=== PATIENT | male | born 1955 | race Caucasian/White ===

== ENCOUNTER → 2023-07-31 13:49 | Outpatient (REF) | payer OTHER, SELFPAY | LOC: RAD 13:49 | PROVIDERS: ATTENDING PHYSICIAN Student in an Organized Health Care Education/Training Program | DX: Z00.00 Encounter for general adult medical examination without abnormal findings (principal) | CPT/HCPCS: 76770 ==

== ENCOUNTER → 2025-02-04 13:55 | Outpatient (REF) | payer OTHER, MEDICARE, SELFPAY | LOC: RAD 13:55 | PROVIDERS: ATTENDING PHYSICIAN Family Medicine | DX: R09.89 Other specified symptoms and signs involving the circulatory and respiratory systems (principal); R53.83 Other fatigue; R05.3 Chronic cough | CPT/HCPCS: 71046 ==

== ENCOUNTER → 2025-02-09 11:11 | Outpatient (REF) | payer OTHER, MEDICARE, SELFPAY | LOC: HWRAD 11:11 | PROVIDERS: ATTENDING PHYSICIAN Family Medicine | DX: R05.3 Chronic cough (principal); R53.83 Other fatigue; Z87.891 Personal history of nicotine dependence | CPT/HCPCS: 71250 ==